=== PATIENT | male | born 1970 | race American Indian/Alaskan Native ===

== ENCOUNTER 2020-04-10 13:00 | Emergency (ER) | payer SELFPAY ==
[2020-04-10 13:26] VITALS: BP 145/82
[2020-04-10] MEDS ORDERED: predniSONE 20 MG TAB PO ONE (14:09)
[2020-04-10] MEDS ORDERED: KETOROLAC 60 MG/2 ML INJ IM ONE (14:09)
--- NOTE | 2020-04-10 14:32 | Emergency Department Report ---
ED Back Pain/Injury HPI - General Chief Complaint: Back Pain/Injury Stated Complaint: BACK PAIN Time Seen by Provider: 04/10/20 13:46 Source: patient Limitations: No Limitations - History of Present Illness Initial Comments: This is a 49-year-old male nontoxic, well nourished in appearance, no acute signs of distress presents to the ED with c/o of right sided mid back pain x1 d ay. Patient stated that he was stretching and developed sharp pains. Patient denies any radiation of pain. Patient denies any trauma. Denies any bladder or bowel instability. Patient denies any urinary symptoms. Denies any fever, chills, nausea, vomiting, headache, stiff neck, chest pain or shortness of breath. Patient denies any numbness or tingling. Denies any allergies. Denies significant past medical history. MD Complaint: back pain -: days(s) (1) Place: home Radiation: none Severity: mild Severity scale (0 -10): 3 Quality: aching Consistency: intermittent Improves With: immobilization, sitting upright Worsens With: movement, walking Associated Symptoms: denies other symptoms. denies: confusion, weakness, chest pain, numbness, difficulty walking, cough, difficulty urinating, diaphoresis, incontinence, fever/chills, constipation, headaches, abdominal pain, loss of appetite, malaise, nausea/vomiting, rash, seizure, shortness of breath, syncope - Related Data Previous Rx's Medication Instructions Recorded Last Taken Type Cyclobenzaprine [Flexeril] 10 mg PO QHS PRN #10 tablet 04/10/20 Unknown Rx Naproxen 500 mg PO Q12H PRN #12 tablet 04/10/20 Unknown Rx Allergies Allergy/AdvReac Type Severity Reaction Status Date / Time No Known Allergies Allergy Unverified 04/10/20 13:25 ED Review of Systems ROS: Stated complaint: BACK PAIN Other details as noted in HPI Constitutional: denies: chills, fever Eyes: denies: eye pain, eye discharge, vision change ENT: denies: ear pain, throat pain Respiratory: denies: cough, shortness of breath, wheezing Cardiovascular: denies: chest pain, palpitations Endocrine: no symptoms reported Gastrointestinal: denies: abdominal pain, nausea, diarrhea Genitourinary: denies: urgency, dysuria Musculoskeletal: back pain. denies: joint swelling, arthralgia Skin: denies: rash, lesions Neurological: denies: headache, weakness, paresthesias Psychiatric: denies: anxiety, depression Hematological/Lymphatic: denies: easy bleeding, easy bruising ED Past Medical Hx - Past Medical History Previous Medical History?: No - Surgical History Past Surgical History?: No - Medications Home Medications: Home Medications Medication Instructions Recorded Confirmed Last Taken Type Cyclobenzaprine [Flexeril] 10 mg PO QHS PRN #10 tablet 04/10/20 Unknown Rx Naproxen 500 mg PO Q12H PRN #12 tablet 04/10/20 Unknown Rx ED Physical Exam - General Limitations: No Limitations General appearance: alert, in no apparent distress - Head Head exam: Present: atraumatic, normocephalic - Eye Eye exam: Present: normal appearance - Neck Neck exam: Present: normal inspection, full ROM. Absent: tenderness, meningismus, lymphadenopathy - Respiratory Respiratory exam: Present: normal lung sounds bilaterally. Absent: respiratory distress, wheezes, rales, rhonchi, stridor, chest wall tenderness, accessory muscle use, decreased breath sounds, prolonged expiratory - Cardiovascular Cardiovascular Exam: Present: regular rate, normal rhythm, normal heart sounds. Absent: bradycardia, tachycardia, irregular rhythm, systolic murmur, diastolic murmur, rubs, gallop - GI/Abdominal GI/Abdominal exam: Present: soft, normal bowel sounds. Absent: distended, tenderness, guarding, rebound, rigid, diminished bowel sounds, bruit - Extremities Exam Extremities exam: Present: normal inspection, full ROM - Back Exam Back exam: Present: normal inspection, full ROM, paraspinal tenderness (Right thoracic paraspinal). Absent: tenderness, CVA tenderness (R), CVA tenderness (L), muscle spasm, vertebral tenderness, rash noted - Expanded Back Exam Expanded Back exam: Absent: saddle anesthesia Back exam: Negative Straight Leg Raising: Left, Right 1 - pain here - Neurological Exam Neurological exam: Present: alert, oriented X3, normal gait - Psychiatric Psychiatric exam: Present: normal affect, normal mood - Skin Skin exam: Present: warm, dry, intact, normal color. Absent: rash ED Course Vital Signs 04/10/20 13:26 Temperature 98.2 F Pulse Rate 88 Respiratory 18 Rate Blood Pressure 145/82 [Right] O2 Sat by Pulse 99 Oximetry - Reevaluation(s) Reevaluation #1: 04/10/20 14:32 Patient is speaking in full sentences with no signs of distress noted. ED Medical Decision Making - Lab Data Lab Results 04/10/20 Range/Units 14:11 Urine Color Yellow (Yellow) Urine Turbidity Clear (Clear) Urine pH 5.0 (5.0-7.0) Ur Specific [place] 1.014 (1.003-1.030) Urine Protein <15 mg/dl (Negative) mg/dL Urine Glucose (UA) Neg (Negative) mg/dL Urine Ketones Neg (Negative) mg/dL Urine Blood Neg (Negative) Urine Nitrite Neg (Negative) Urine Bilirubin Neg (Negative) Urine Urobilinogen < 2.0 (<2.0) mg/dL Ur Leukocyte Esterase Neg (Negative) Urine WBC (Auto) 1.0 (0.0-6.0) /HPF Urine RBC (Auto) 3.0 (0.0-6.0) /HPF Hyaline Casts 1 /LPF Urine Mucus Few /HPF - Medical Decision Making This is a 49-year-old male that presents with low back strain. Patient is stable was examined by me. There is no spinal tenderness. There is no cauda equina syndrome during examination. No bladder or bowel instability. UA obtained. Patient received Toradol 60 mg IM and prednosone in the ED which stated that his symptoms has resolved and subsided. Patient is discharged with muscle relaxant and Motrin. Patient was instructed not to operate any machinery while taking muscle relaxant as they cause her drowsiness. Patient was referred to Follow-up with a primary care doctor in 3-5 days or if symptoms worsen and continue return to emergency room as soon as possible. At time of discharge, the patient does not seem toxic or ill in appearance. No acute signs of distress noted. Patient agrees to discharge treatment plan of care. No further questions noted by the patient. This chart is dictated with using [employer] Critical care attestation.: If time is entered above; I have spent that time in minutes in the direct care of this critically ill patient, excluding procedure time. ED Disposition Clinical Impression: Low back strain Qualifiers: Encounter type: initial encounter Qualified Code(s): S39.012A - Strain of muscle, fascia and tendon of lower back, initial encounter Disposition: TO HOME OR SELFCARE Is pt being admited?: No Does the pt Need Aspirin: No Condition: Stable Instructions: Low Back Strain (ED), Cyclobenzaprine (By mouth) Additional Instructions: Follow-up with your primary care doctor in 3-5 days or if symptoms worsen such as bladder or bowel stability, chest pain, short of breath, numbness or tingling sensation in extremities, headache, dizziness, visual changes, nausea vomiting, or abdominal pain, return back to emergency room as was possible. Take Naproxen and Flexeril as prescribed. Do not operate heavy machinery while taking Flexeril due to sedation Prescriptions: Cyclobenzaprine [Flexeril] 10 mg PO QHS PRN #10 tablet PRN Reason: Muscle Spasm Naproxen 500 mg PO Q12H PRN #12 tablet PRN Reason: Pain , Severe (7-10) Referrals: PRIMARY MD JUAN [Primary Care Provider] - 3-5 Days OBINNA FRANKLIN MD [Staff Physician] - 3-5 Days Forms: Work/School Release Form(ED)
[2020-04-10 14:39] LABS: Bilirubin,Urine NEG (Negative); Blood,Urine NEG (Negative); Color,Urine Yellow (Yellow); Hyaline Casts,Urine 1 /LPF; Mucus,Urine FEW /HPF; Protein,Urine <15 mg/dL mg/dL (Negative); Urobilinogen,Urine < 2.0 mg/dL (<2.0)
== END 2020-04-10 15:06 | disposition home or self-care (01) ==
LOC: ED 13:00
DX: S39.012A Strain of muscle, fascia and tendon of lower back, initial encounter (principal); X58.XXXA Exposure to other specified factors, initial encounter; Y93.9 Activity, unspecified; Y92.89 Other specified places as the place of occurrence of the external cause; Y99.8 Other external cause status
CPT/HCPCS: 81001; 96372; 99283; J1885; J7512

== ENCOUNTER 2022-02-14 11:29 | Emergency (ER) | payer SELFPAY ==
[2022-02-14] MEDS ORDERED: ACETAMINOPHEN W/CODEINE 300-30 MG TAB PO ONE (14:46)
[2022-02-14] MEDS ORDERED: KETOROLAC 10 MG TAB PO ONE (14:46)
[2022-02-14 15:25] LABS: Bilirubin,Urine NEG (Negative); Blood,Urine LG (Negative); Color,Urine Yellow (Yellow); Urobilinogen,Urine < 2.0 mg/dL (<2.0)
[2022-02-14 15:30] LABS: Bacteria,Urine 1+ /HPF (Negative); Mucus,Urine FEW /HPF
--- NOTE | 2022-02-14 17:14 | Ultrasound Report ---
ULTRASOUND SCROTUM INDICATION: r/o torsion. Testicular pain. COMPARISON None available. FINDINGS -- RIGHT TESTIS: Size: 4.5 cm. Echotexture: Normal. Color Doppler Flow: Normal. Lesions: None. EPIDIDYMIS: Size: Normal. Echotexture: Normal. Color Doppler Flow: Normal. Lesions: None. Hydrocele: Moderate Varicocele: None. Additional Findings: None. FINDINGS -- LEFT TESTIS: Size: 5.4 cm. Echotexture: Normal. Color Doppler Flow: Normal. Lesions: None. EPIDIDYMIS: Size: Normal. Echotexture: Normal. Color Doppler Flow: Normal. Lesions: None. Hydrocele: None. Varicocele: None. Additional Findings: None. IMPRESSION: 1. No sonographic evidence of testicular torsion. 2. Moderate right hydrocele. Signer Name: Darryn Hand MD Signed: 02/14/2022 5:09 PM Workstation Name: [id number]
--- NOTE | 2022-02-14 17:32 | Emergency Department Report ---
ED Male HPI - General Chief complaint: Medical Clearance Stated complaint: SWOLLEN TESTICLE Time Seen by Provider: 02/14/22 14:42 Source: patient Mode of arrival: Ambulatory Limitations: No Limitations - History of Present Illness Initial comments: 51-year-old black male with past medical history of gout presents to the emergency department for evaluation of 3-day history of swollen testicles. He states that he has been using ibuprofen and ice pack at home without improvement. He denies fever, nausea, vomiting, abdominal pain, and penile discharge. He is also requesting a refill of his gout medications colchicine and indomethacin that he states he uses on a as needed basis. MD Complaint: testicle pain, testicle swelling -: Gradual, days(s) (3) Location: right testicle Radiation: none Severity: severe Severity scale (0 -10): 9 Quality: aching Consistency: constant Worsens with: other (Ambulation) swelling. denies: discharge, mass, rash, urinary retention, blood in urine, dysuria, fever, nausea/vomiting, incontinence - Related Data Sexually active: No Previous Rx's Medication Instructions Recorded Last Taken Type Cyclobenzaprine [Flexeril] 10 mg PO QHS PRN #10 tablet 04/10/20 Unknown Rx Naproxen 500 mg PO Q12H PRN #12 tablet 04/10/20 Unknown Rx Colchicine 0.6 mg PO DAILY PRN #30 tab 02/14/22 Unknown Rx Indomethacin [Indocin] 25 mg PO Q8H PRN #30 cap 02/14/22 Unknown Rx Ketorolac [Toradol] 10 mg PO Q6H PRN #12 tab 02/14/22 Unknown Rx levoFLOXacin [Levaquin TAB] 500 mg PO BID 10 Days #20 tablet 02/14/22 Unknown Rx Allergies Allergy/AdvReac Type Severity Reaction Status Date / Time No Known Allergies Allergy Verified 02/14/22 11:44 ED Review of Systems ROS: Stated complaint: SWOLLEN TESTICLE Other details as noted in HPI Comment: All other systems reviewed and negative Constitutional: denies: chills, fever Respiratory: denies: cough, shortness of breath, SOB with exertion, SOB at rest, stridor, wheezing Cardiovascular: denies: chest pain, palpitations Gastrointestinal: denies: abdominal pain, nausea, vomiting, diarrhea, hematemesis, melena, hematochezia Genitourinary: testicular pain. denies: urgency, dysuria, frequency, hematuria, discharge Musculoskeletal: denies: back pain Skin: denies: lesions Neurological: denies: headache, weakness ED Past Medical Hx - Medications Home Medications: Home Medications Medication Instructions Recorded Confirmed Last Taken Type Cyclobenzaprine [Flexeril] 10 mg PO QHS PRN #10 tablet 04/10/20 Unknown Rx Naproxen 500 mg PO Q12H PRN #12 tablet 04/10/20 Unknown Rx Colchicine 0.6 mg PO DAILY PRN #30 tab 02/14/22 Unknown Rx Indomethacin [Indocin] 25 mg PO Q8H PRN #30 cap 02/14/22 Unknown Rx Ketorolac [Toradol] 10 mg PO Q6H PRN #12 tab 02/14/22 Unknown Rx levoFLOXacin [Levaquin TAB] 500 mg PO BID 10 Days #20 tablet 02/14/22 Unknown Rx ED Physical Exam - General Limitations: No Limitations General appearance: alert, in no apparent distress - Head Head exam: Present: atraumatic, normocephalic - Eye Eye exam: Present: normal appearance. Absent: scleral icterus, conjunctival injection, periorbital swelling, periorbital tenderness - ENT ENT exam: Present: normal exam - Neck Neck exam: Present: normal inspection, full ROM. Absent: tenderness, lymphadenopathy, thyromegaly - Respiratory Respiratory exam: Present: normal lung sounds bilaterally. Absent: respiratory distress, wheezes, rales, rhonchi, stridor, chest wall tenderness - Cardiovascular Cardiovascular Exam: Present: regular rate, normal heart sounds - GI/Abdominal GI/Abdominal exam: Present: soft, normal bowel sounds. Absent: distended, tenderness, guarding, rebound, rigid - Extremities Exam Extremities exam: Present: normal inspection, full ROM, normal capillary refill. Absent: tenderness, pedal edema, joint swelling, calf tenderness - Back Exam Back exam: Present: normal inspection. Absent: CVA tenderness (R), CVA tenderness (L) - Neurological Exam Neurological exam: Present: alert, oriented X3, CN II-XII intact, normal gait, reflexes normal. Absent: motor sensory deficit - Psychiatric Psychiatric exam: Present: normal affect, normal mood - Skin Skin exam: Present: warm, dry, intact, normal color ED Course Vital Signs 02/14/22 02/14/22 02/14/22 11:41 12:30 18:15 Temperature 97.7 F 96.3 F L 98.4 F Pulse Rate 100 H 84 88 Respiratory 18 16 16 Rate Blood Pressure 139/87 Blood Pressure 136/91 136/87 [Left] O2 Sat by Pulse 96 100 100 Oximetry ED Medical Decision Making - Radiology Data Radiology results: report reviewed, image reviewed Testicular ultrasound: FINDINGS -- RIGHT TESTIS: Size: 4.5 cm. Echotexture: Normal. Color Doppler Flow: Normal. Lesions: None. EPIDIDYMIS: Size: Normal. Echotexture: Normal. Color Doppler Flow: Normal. Lesions: None. Hydrocele: Moderate Varicocele: None. Additional Findings: None. FINDINGS -- LEFT TESTIS: Size: 5.4 cm. Echotexture: Normal. Color Doppler Flow: Normal. Lesions: None. EPIDIDYMIS: Size: Normal. Echotexture: Normal. Color Doppler Flow: Normal. Lesions: None. Hydrocele: None. Varicocele: None. Additional Findings: None. IMPRESSION: 1. No sonographic evidence of testicular torsion. 2. Moderate right hydrocele. - Medical Decision Making 51-year-old black male with past medical history of gout presents to the emergency department for evaluation of 3-day history of swollen testicles. He states that he has been using ibuprofen and ice pack at home without improvement. He denies fever, nausea, vomiting, abdominal pain, and penile discharge. He is also requesting a refill of his gout medications colchicine and indomethacin that he states he uses on a as needed basis. Patient noted to have tenderness and swelling to right testicle only. No penile discharge or irritation noted. No abdominal tenderness noted. Ultrasound positive for right hydrocele only, and urine positive for significant urinary tract infection. Patient states that he has not been sexually active recently and is not concerned about STDs, so patient will be treated with long course of Levaquin and advised to follow-up with urology for further evaluation and management of right hydrocele. He is advised to return to the emergency department if no improvement or worsening symptoms. He verbalizes understanding of and agreement with plan of care. Critical care attestation.: If time is entered above; I have spent that time in minutes in the direct care of this critically ill patient, excluding procedure time. ED Disposition Clinical Impression: Hydrocele in adult, Medication refill UTI (urinary tract infection) Qualifiers: Urinary tract infection type: acute cystitis Hematuria presence: without hematuria Qualified Code(s): N30.00 - Acute cystitis without hematuria Disposition: 01 HOME / SELF CARE / HOMELESS Is pt being admited?: No Does the pt Need Aspirin: No Condition: Stable Instructions: Antibiotic Medicine, Adult, [id number], Urinary Tract Infection, Adult, [id number], Testicular Self-Exam, [id number] Additional Instructions: Take medications as prescribed. Follow-up with urology for further evaluation and management. Return to the emergency department as needed. Prescriptions: Colchicine 0.6 mg PO DAILY PRN #30 tab PRN Reason: Pain , Severe (7-10) Indomethacin [Indocin] 25 mg PO Q8H PRN #30 cap PRN Reason: Pain, Moderate (4-6) levoFLOXacin [Levaquin TAB] 500 mg PO BID 10 Days #20 tablet Ketorolac [Toradol] 10 mg PO Q6H PRN #12 tab PRN Reason: Pain Referrals: EVELYN GAY MD [Staff Physician] - 3-5 Days TOM REMY MD [Referring] - 3-5 Days Time of Disposition: 17:32
[2022-02-14 18:41] VITALS: BP 139/87
== END 2022-02-14 18:41 | disposition home or self-care (01) ==
LOC: ED 11:29
DX: N39.0 Urinary tract infection, site not specified (principal); N43.3 Hydrocele, unspecified; Z76.0 Encounter for issue of repeat prescription; Z79.899 Other long term (current) drug therapy
CPT/HCPCS: 81001; 87076; 87086; 87186; 93975; 99284